=== PATIENT | female | born 1955 | race Asian ===

== ENCOUNTER → 2018-10-12 | Outpatient (CLI) | payer OTHER ==
[2018-10-13 14:03] LABS: RUBEOLA (MEASLES) IGG <13.5 AU/mL (Immune >16.4)
== END | disposition home or self-care (01) ==
LOC: EMPHLTH 09:54
PROVIDERS: ATTEND Internal Medicine
DX: Z02.1 Encounter for pre-employment examination (principal)
CPT/HCPCS: 86706; 86735; 86762; 86765; 86787